=== PATIENT | male | born 1955 | race Caucasian/White ===

== ENCOUNTER → 2018-08-14 13:39 | Outpatient (CLI) | payer SELFPAY ==
[2013-10-23 13:27] VITALS: BMI 31.5
--- NOTE | 2018-08-14 13:50 | CT_ITS ---
STUDY: CT CHEST WITHOUT CONTRAST REASON FOR EXAM: Male, 62 years old. Elevated cholesterol levels. Calcium scoring examination. Radiological ovary. RADIATION DOSAGE (If Supplied By Facility): CTDIvol = ( 12.19 ) mGy, DLP = ( 219.42 ) mGycm TECHNIQUE: Transaxial imaging was performed without the administration of intravenous contrast material. Individualized dose optimization techniques were used for this CT. COMPARISON: None. FINDINGS: Small bilateral axillary lymph nodes. The lungs are normal. There is no demonstrated pleural abnormality. There are calcifications of the coronary arteries. There are multiple small lymph nodes within the mediastinum, which are normal in size and morphology most compatible with reactive lymph hyperplasia. Normal hilar regions. Normal unenhanced pulmonary arteries. There is atherosclerotic calcification of the aortic arch aortic arch . There are multi-level degenerative changes of the thoracic spine. Moderate sized hiatal hernia. CT/Limited Chest CT w/CCTA IMPRESSION: No acute abnormality is seen. Electronically Signed: Lucien Milton MD at 8:50 EST , Service support ,
[2018-08-14 13:53] VITALS: BP 132/85; PULSE 75; RESP 16; O2SAT 99; BMI 31.6
--- NOTE | 2018-08-15 15:20 | CA.SCORE ---
Calcium Scoring Date of Study:: 08/14/18 Coronary Calcium Scoring: Total Agatston coronary score of 6.76. Left main: 0 Left anterior descendin.76 Left circumflex: 0 Right coronary artery: 0 Conclusion: Conclusion: The total calcium score (6.76) is below the 25th percentile for men between the ages of 60 and 64. (Exact percentile calculated to be 5%; this means 4% of the population has a lower calcium score and 95% of the population is a higher calcium score than this patient). Results: Results: Coronary calcium score between 1?10 demonstrates minimal plaque burden and significant coronary artery disease is very unlikely. Impression: Impression: Coronary calcium scoring is intended to be a risk assessment test for coronary artery disease only, and the results of this examination should be taken into careful consideration by the patient's own physician in the context of other factors such as relevant history, physical examination, and any other indicated investigations. A full evaluation of cardiac risk should include an assessment of all conventional risk factors, and the scores and percentile ranking is reported herein should be evaluated in this context. Recommend clinical correlation or alternative mode of testing if coronary occlusive disease is strongly suspected.
== END ==
PROVIDERS: Family Provider Internal Medicine; PCP Internal Medicine; Referring Provider Internal Medicine; Visit Provider Internal Medicine
DX: E78.5 Hyperlipidemia, unspecified (principal)
CPT/HCPCS: 75571; 76380

== ENCOUNTER 2019-06-14 19:23 | Emergency (ER) | payer OTHER, SELFPAY ==
[2018-08-14 13:53] VITALS: BMI 31.6
[2019-06-14 19:24] VITALS: BP 140/73; PULSE 90; RESP 15; TEMP 36.1; O2SAT 98; BMI 32.6
--- NOTE | 2019-06-14 19:45 | RAD_ITS ---
HISTORY:FALL, SUPERIOR PAIN FALL, SUPERIOR PAIN COMPARISON: None FINDINGS: # of images incl. paperwork: 4 XR Shoulder Min 2 Views: Left BONE AND JOINTS: No acute fracture. The acromioclavicular joint is at the upper limits of normal. Question acromioclavicular separation. The coracoclavicular joint is maintained SOFT TISSUES: Unremarkable. No radiopaque foreign body. RAD/Shoulder min 2 Views IMPRESSION: Question grade 1-2 acromioclavicular separation. Correlate clinically for pain at 2038 Reported and signed by: Kaci Kelley DO Electronically Signed: Kaci Kelley DO at 20:37 EST Tel , Service support ,
--- NOTE | 2019-06-14 19:50 | RAD_ITS ---
HISTORY:FALL, PAIN 4-5 DISTAL MC FALL, PAIN 4-5 DISTAL MC COMPARISON: None FINDINGS: # of images incl. paperwork: 3 XR Hand Min 3 Views: Right BONE AND JOINTS: No acute fracture or subluxation. There is degenerative change at the first carpometacarpal joint SOFT TISSUES: Unremarkable. No radiopaque foreign body. RAD/Hand Min 3 Views IMPRESSION: No acute pathology If symptoms persist repeat study in 7-10 days or sooner if clinically indicated at 2037 Reported and signed by: Kaci Kelley DO Electronically Signed: Kaci Kelley DO at 20:36 EST Tel , Service support ,
--- NOTE | 2019-06-14 20:52 | ED.VISSUMM ---
- ER Visit Summary Date of Service: 06/14/19 Chief Complaint: Left shoulder injury History of Present Illness: The patient is a 63 M who was standing on a barstool trying to hang a picture when he fell landing directly onto the left shoulder. He is right-handed. He thinks he saw a deformity when he left the house. He denies any paresthesias or muscle weakness of the arm. He denies striking his head or having any neck pain. No abdominal or back pain. He notes his fourth and fifth finger on the right hand are painful to move but denies any loss of function. Physical Examination: Afebrile vital signs are stable Gen: Well-nourished well-developed Head: Normocephalic atraumatic Eyes: Perrl EOMI ENT: TMs clear no rhinorrhea moist mucous membranes Neck: Supple no lymphadenopathy no JVD nontender CVS: Regular rate rhythm no murmurs normal S1-S2 Respiratory: No distress clear to auscultation bilaterally chest nontender Abdomen: Soft nontender nondistended normal bowel sounds no masses Back: Nontender Extremity: Right hand shows full range of motion albeit painful per him of the fourth and fifth finger. The left shoulder shows tenderness over the AC joint. No obvious deformity. Neurovascularly intact. Limited range of motion due to pain Skin: Normal color no rash Neuro: alert orientated ?3 CN II-XII intact normal strength sensation Psych: Normal affect normal mood Test Results: Hand films were negative for fracture. Shoulder films show a probable grade 1/grade 2 AC separation. Emergency Department Course and Treatment: Patient drove himself to the hospital and is allergic to all anti-inflammatories. I will write for him to have a sling and for [place]. Patient to follow-up with orthopedics. Impression: 1. Left AC separation This note was generated with [employer] dictation software. It may contain incorrect words, spelling, and punctuation that were not noted in review of the chart prior to signing ED Disposition - Plan for ED Patient: Disposition: Home or Assisted Living Instructions: Ac Joint Sprain Prescriptions: Hydrocodone Bitart/Apap 5-325 [[place] 5MG-325MG] 1 tab PO Q6H PRN PRN 3 Days #12 tab PRN Reason: Pain Prescription Printed Referrals: Tony Harvey MD [STAFF PHYSICIAN] - As soon as possible
[2019-06-14 21:13] VITALS: BP 130/88; PULSE 83; RESP 16; O2SAT 95
== END 2019-06-14 21:31 | disposition home or self-care (01) ==
PROVIDERS: Emergency Provider Emergency Medicine; Family Provider Internal Medicine; PCP Internal Medicine
DX: S43.102A Unspecified dislocation of left acromioclavicular joint, initial encounter (principal); M79.641 Pain in right hand; W17.89XA Other fall from one level to another, initial encounter; Y93.9 Activity, unspecified; Y92.9 Unspecified place or not applicable; I10 Essential (primary) hypertension; E78.00 Pure hypercholesterolemia, unspecified; F32.9 Major depressive disorder, single episode, unspecified; Z79.899 Other long term (current) drug therapy
CPT/HCPCS: 73030; 73130; 99283

== ENCOUNTER → 2020-01-08 11:22 | Outpatient (CLI) | payer OTHER, SELFPAY ==
--- NOTE | 2020-01-08 11:30 | US_ITS ---
STUDY: RENAL ULTRASOUND - COMPLETE REASON FOR EXAM: Male, 64 years old. ELEVATED SERUM CREATININE TECHNIQUE: Ultrasound evaluation of the kidneys was performed with real-time and static palacios-scale imaging. COMPARISON: None. FINDINGS: RIGHT KIDNEY: Normal location of the right kidney, which is normal in size. The right kidney measures 10.0 x 6.1 x 5.5 cm. There is a normal cortex of the right kidney. The renal cortex measures 1.0 cm. There is no right renal mass or cyst. There are no right renal calculi. There is no right hydronephrosis. DISTAL RIGHT URETER: There is non-visualization of the distal right ureter. There is no demonstrated right ureterovesical junction calculus. There is a visualized right ureteral jet. LEFT KIDNEY: Normal location of the left kidney, which is normal in size. The left kidney measures 9.9 x 5.0 x 5.8 cm. There is a normal cortex of the left kidney. The renal cortex measures 1.2 cm. There is no left renal mass or cyst. There are no left renal calculi. There is no left hydronephrosis. DISTAL LEFT URETER: There is non-visualization of the distal left ureter. There is no demonstrated left ureterovesical junction calculus. There is a visualized left ureteral jet. AORTA: There is no elongation or tortuosity of the abdominal aorta. I.V.C.: The IVC is patent. BLADDER: The bladder is sonographically normal US/Kidney and Bladder IMPRESSION: No suspicious sonographic findings Electronically Signed: Riccardo Ivory MD at 13:17 EDT , Service support ,
--- NOTE | 2020-01-08 11:58 | RAD_ITS ---
STUDY: X-RAY - LEFT HAND, ATTENTION FIRST FINGER REASON FOR EXAM: Male, 64 years old. BILATERAL THUMB PAIN TECHNIQUE: view(s) of the finger were obtained. COMPARISON: None. FINDINGS: Normal metacarpal head. Normal metacarpophalangeal joint. Normal proximal phalanx. Normal middle phalanx. Normal distal phalanx. Normal proximal interphalangeal joint. Normal distal interphalangeal joint. RAD/Finger(s) Min 2 Views IMPRESSION: Normal x-ray examination of the finger. Electronically Signed: Riccardo Ivory MD at 13:22 EDT , Service support ,
--- NOTE | 2020-01-08 12:04 | RAD_ITS ---
STUDY: X-RAY - RIGHT HAND, ATTENTION FIRST FINGER REASON FOR EXAM: Male, 64 years old. BILATERAL THUMB PAIN TECHNIQUE: view(s) of the finger were obtained. COMPARISON: None. FINDINGS: Normal metacarpal head. Normal metacarpophalangeal joint. Normal proximal phalanx. Normal middle phalanx. Normal distal phalanx. Normal interphalangeal joint. Degenerative arthrosis at the base of the thumb. RAD/Finger(s) Min 2 Views IMPRESSION: No demonstrated fracture or suspicious osseous lesion First CMC joint arthrosis Electronically Signed: Riccardo Ivory MD at 13:19 EDT , Service support ,
== END ==
PROVIDERS: PCP Internal Medicine; Referring Provider Internal Medicine; Visit Provider Internal Medicine
DX: M79.645 Pain in left finger(s) (principal); M79.644 Pain in right finger(s); R79.89 Other specified abnormal findings of blood chemistry
CPT/HCPCS: 73140; 76770

== ENCOUNTER → 2020-02-25 07:59 | Outpatient (CLI) | payer OTHER, SELFPAY ==
--- NOTE | 2020-02-25 08:06 | RDU_ITS ---
Reason For Study: Acute Renal Failure Right Renal Artery Left Renal Artery Right renal artery ostium 124/21 Left renal artery ostium 82/15 RSV/EDV. PSV/EDV. Right renal artery proximal 116/23 Left renal artery proximal PSV/EDV PSV/EDV. 110/26 . Right renal artery mid 145/26 Left renal artery mid 82/20 PSV/EDV. PSV/EDV . Right renal artery distal 132/31 Left renal artery distal 88/27 PSV/EDV. PSV/EDV. Right Renal Parenchyma Left Renal Parenchyma Upper Pole Medula 20/7 PSV/EDV. Left upper pole medulla 31/13 Right upper pole medulla EDR 0.35 . PSV/EDV . Right upper pole medulla R.I. Left upper pole medulla EDR 0.42 . 0.65 . Left upper pole medulla R.I. 0.59 . Upper Jose Cortx 21/8 PSV/EDV. UP Cortex 25/9 PSV/EDV. Right upper pole cortex EDR 0.38 . Left upper pole cortex EDR 0.36 . Right upper pole cortex R.I. 0.62 . Left upper pole cortex R.I. 0.63 . Right lower Pole medulla 23/8 Left lower Pole medulla 26/11 PSV/EDV . PSV/EDV . Right lower pole medulla EDR 0.35 . Left lower pole medulla EDR 0.42 . Right lower pole medulla R.I. Left lower pole medulla R.I. 0.59 . 0.67 . Lower Pole Cortx 19/7 PSV/EDV. Lower Pole Cortex 17/6 PSV/EDV. Left lower pole cortex EDR 0.37 . Right lower pole cortex EDR 0.35 . Left lower pole cortex R.I. 0.62 . Right lower pole cortex R.I. 0.64 . Left Renal Hilar Right Renal Hilar LT Hilar avg 50/15 PSV/EDV . Right Hilar avg 77/28 PSV/EDV. Left hilar acceleration time 30 Right hilar acceleration time 20 m/sec. m/sec. Left Renal Dimensions Right Renal Dimensions Left kidney size 9.58 cm . Right kidney size 9.64 cm . Left cortical dimension 1.26 cm . Right cortical dimension 1.22 cm . Aorta Proximal abdominal aorta 2.21 cm x 2.23 cm . Proximal abdominal aorta peak systolic velocity is 147 cm/sec . Distal abdominal aorta 1.74 cm x 1.91 cm . Distal abdominal aorta peak systolic velocity is 157 cm/sec . Interpretation Summary <60% stenosis bilateral renal arteries Normal renal resistivity indices bilaterally Normal right renal length 9.64cm and left renal length 9.58cm Aorta 2.21 x 2.23 cm diameter with increased velocity at 147cm/sec which is higher than normal at less than 100cm/sec Ordering Physician: Yamile Whalen Referring Physician: Yamile Whalen Performed By: Tricia Patricia, ANA LAURA, RVT
== END ==
PROVIDERS: PCP Internal Medicine; Referring Provider Internal Medicine; Visit Provider Internal Medicine
DX: I10 Essential (primary) hypertension (principal); N17.9 Acute kidney failure, unspecified; R79.89 Other specified abnormal findings of blood chemistry
CPT/HCPCS: 93975

== ENCOUNTER → 2022-04-21 | Outpatient (CLI) | payer OTHER, SELFPAY ==
[2022-04-21 12:54] LABS: Potassium 5.1 mmol/L (3.5-5.1)
== END | disposition home or self-care (01) ==
LOC: LABSPEC 12:19
PROVIDERS: PCP Internal Medicine; Referring Provider Internal Medicine; Visit Provider Internal Medicine
DX: E87.5 Hyperkalemia (principal)
CPT/HCPCS: 84132

== ENCOUNTER → 2022-10-23 | Outpatient (CLI) | payer MEDICARE, SELFPAY ==
--- NOTE | 2022-10-23 10:42 | STRESSREP ---
Stress Test Report Date: 10/23/2022 Procedure: Exercise tolerance test/imaging study Indications: Chest pain Consent: Per the patient Procedure: The patient exercised on a Jimmy protocol for 9 minutes achieving a peak heart rate of 153 bpm (98% predicted maximal heart rate) with a peak blood pressure 170/72 mmHg and a peak MET capacity of 10.4 METs. The baseline ECG demonstrated normal sinus rhythm. The peak exercise ECG demonstrated no ischemic change. [There were no cardiac dysrhythmias pretest, during exercise, or recovery]. The functional capacity was considered adequate. There was [no complaint of chest discomfort during exercise or recovery]. The examination was discontinued secondary to target heart rate being achieved. The patient was injected with 14.7 mCi of technetium 99m Cardiolite and subsequently rest SPECT Cardiolite nuclear imaging was obtained in the horizontal long, vertical long, and short axis views. Post-exercise, the patient was injected with 44.4 mCi of technetium 99m Cardiolite and subsequently stress SPECT Cardiolite nuclear imaging was obtained in the horizontal long, vertical long, and short axis views. A gated Cardiolite study at peak stress was obtained. Rest and stress SPECT Cardiolite nuclear imaging status post realignment, normalization, and attenuation correction, demonstrates [the appearance of relative uniform tracer uptake and myocardial perfusion appearing within normal limits]. [There is end systolic thickening and brightening]. The gated Cardiolite study demonstrates [myocardial thickening and inward wall motion]. The reported LVEF is 66%. Impression: 1. Technically adequate (percent predicted maximal heart rate greater than 85%) exercise tolerance test 2. Peak exercise ECG with no ischemic changes 3. [There were no cardiac dysrhythmias pretest, during exercise, or recovery] 4. Rest and stress SPECT Cardiolite nuclear imaging demonstrate no fixed or reversible perfusion defects. 5. The gated Cardiolite study reports an LVEF of 66%. This note was generated with [employer] software. It may contain incorrect words, spelling, and punctuation that were not noted in checking the note before signing.
== END | disposition home or self-care (01) ==
PROVIDERS: PCP Internal Medicine; Referring Provider Internal Medicine; Visit Provider Internal Medicine
DX: I25.10 Atherosclerotic heart disease of native coronary artery without angina pectoris (principal); R07.9 Chest pain, unspecified
CPT/HCPCS: 78452; 93017; A9500; A4216

== ENCOUNTER → 2022-11-22 | Outpatient (CLI) | payer SELFPAY ==
--- NOTE | 2022-11-22 12:32 | CT_ITS ---
INDICATION: SCREENING limited chest over-read ONLY EXAMINATION: CT CHEST WITHOUT CONTRAST - CT Chest W/O Contrast Injection TECHNIQUE: Helically acquired images were obtained of the chest. A radiation dose optimization technique was used for this scan. IV Contrast dosage and agent: None. COMPARISON: None. FINDINGS: LUNGS, PLEURA AND LARGE AIRWAYS: Mild increased markings at the lung bases suggests a viral or mild atelectasis and/or scarring. No pleural effusion or thickening. No pneumothorax. THYROID: No thyroid lesions. HEART AND PERICARDIUM: Heart size is normal. No pericardial effusion. CORONARY ARTERIES: Coronary artery calcification is seen. VESSELS: Atherosclerotic calcific plaques of the aortic arch. MEDIASTINUM AND TRAVIS: Small benign-appearing mediastinal lymph nodes. Esophagus is unremarkable. No hiatal hernia. UPPER ABDOMEN: Small hiatal hernia. BONES: Degenerative changes of the visualized thoracic spine. CT/Limited Chest CT Cardiac Only IMPRESSION: Coronary artery calcification. Electronically Signed: Lucien Milton MD at 9:09 EDT ,
--- NOTE | 2022-11-22 17:41 | CA.SCORE ---
Calcium Scoring Date of Study:: 11/22/22 Coronary Calcium Scoring: High-resolution Computed Tomographic imaging of the chest was performed on [11/22/2022], with particular attention paid to the coronary arteries. Images from the examination were analyzed for the presence and extent of coronary artery calcification , using coronary calcium quantification software. The patient tolerated the procedure well and there were no complications. The results of the coronary calcification analysis are provided below. Findings Coronary Artery Left Main (LM): 0 Left Anterior Descending (LAD): 86 Left Circumflex (LCX): 9 Right Coronary Artery (RCA): 0 Total Agatston Score: 95 Percentile Rankinth-50th Calcium Scoring Interpretation: Different methods to categorize the overall amount of coronary plaque. Overall amount CAC SIS Visual of coronary plaque P1 Mild -100 <2 1-2 vessels with mild amount of plaque P2 Moderate 101-300 3-4 1-2 vessels with moderate amount, 3 vessels with mild amount of plaque P3 Severe 301-999 5-7 3 vessels with moderate amount, 1 vessel with severe amount of plaque P4 Extensive >1000 >8 2-3 vessels with severe amount of plaque Calcium Score: Mild: 1-2 vessels w/mild amount of plaque Conclusion: Mild atherosclerotic plaquing noted
== END | disposition home or self-care (01) ==
LOC: CT 12:31
PROVIDERS: PCP Internal Medicine; Referring Provider Internal Medicine; Visit Provider Internal Medicine
DX: I25.10 Atherosclerotic heart disease of native coronary artery without angina pectoris (principal)
CPT/HCPCS: 75571; 76380

== ENCOUNTER 2024-01-22 15:57 | Outpatient (CLI) | payer MEDICARE, SELFPAY ==
--- NOTE | 2024-01-22 | IMM_PTH ---
PATIENT: KILEY SALAZAR LOC: [facility] U#:[id number] AGE/SX: 68/M ROOM: RE01/22/[address]: Dr. Brigido Everett MD : 1955 BED: DIS: 01/22/2024 SPEC #: [id number] RECD: 01/24/24 12:33 STATUS: SHAWNA REQ #: [id number] JERRELL: 01/22/24 00:[address]: Brigido Everett DEPT: IMMUNOHISTOCHEMISTRY RECD BY: Gael Bazan ENTERED: 01/24/24 12:34 SP TYPE: IMMUNO OTHR DR: Dr. Yamile Whalen MD Tissues: D - PROSTATE LEFT E - PROSTATE LEFT F - PROSTATE LEFT Procedures: 34BE12 (add) P40 (add) P40 (initial) 34BE12 (initial) PHYSICIAN & INSTITUTION [place] [id number] SPECIMEN INFORMATION: Tissue Source: D- Prostate left apex, E- Prostate left mid, F- Prostate left base Clinical Info: Elevated PSA Specimen Number: [id number] D, E, F CPT code: 42117v7,67512j0 METHODOLOGY: Deparaffinized sections of prefer/formalin-fixed tissue or PAP/DQ stained slides are incubated with monoclonal/polyclonal antibodies/oligonucleotide probes. Localization is made via biotin free immunoperoxidase method. Appropriate controls are performed and reacted as expected. Results on target cell population are indicated in the following table: RESULTS: ANTIBODY / CLONE RESULT Block D P40 (BC28) negative 34BE12 (34BE12) negative Block E P40 (BC28) positive 34BE12 (34BE12) positive Block F P40 (BC28) positive 34BE12 (34BE12) positive These tests were developed and their performance characteristics determined by [facility]. They may not have been cleared or approved by the U.S. Food and Drug Administration. The FDA has determined that such clearance or approval is not necessary. The above immunohistochemical/dualISH markers are ordered and reviewed by the Pathologist. INTERPRETATION: D. Prostate, left apex, core biopsy: A minute focus of adenocarcinoma. E. Prostate, left mid, core biopsy: Focal high-grade prostatic intraepithelial neoplasia (HGPIN). F. Prostate, left base, core biopsy: Negative for malignancy. JOCELIN/ 01/25/2024
--- NOTE | 2024-01-22 13:00 | PROSBIL_PTH ---
PATIENT: KILEY SALAZAR LOC: [facility] U#:[id number] AGE/SX: 68/M ROOM: RE01/22/[address]: Dr. Brigido Everett MD : 1955 BED: DIS: 01/22/2024 SPEC #: [id number] RECD: 01/22/24 15:00 STATUS: SHAWNA SANTOS #: [id number] JERRELL: 01/22/24 13:[address]: Brigido Everett DEPT: SURGICAL PATHOLOGY RECD BY: Giuliana Garibay ENTERED: 01/23/24 09:32 SP TYPE: PROST BX TAYLOR DR: Dr. Yamile Whalen MD Tissues: A - PROSTATE RIGHT B - PROSTATE RIGHT C - PROSTATE RIGHT D - PROSTATE LEFT E - PROSTATE LEFT F - PROSTATE LEFT Procedures: PROSTATE BX HEADER OPERATION: Prostate biopsy PRE-OP DIAGNOSIS: Elevated PSA TISSUE SUBMITTED: A - Right apex, B - Right mid, C - Right base, D - Left apex, E - Left mid, F - Left base MICROSCOPIC DIAGNOSIS A. Right prostate, apex, core biopsy: Prostatic adenocarcinoma. [place] grade: 3+4=7 Number of cores involved: 1/2 Proportion of tissue involved: ~40% Perineural invasion: Not identified. Greatest tumor length: 0.4cm Focal high-grade prostatic intraepithelial neoplasia (HGPIN). B. Right prostate, mid, core biopsy: Prostatic adenocarcinoma. Martina grade: 4+3=7 Number of cores involved: 2/2 Proportion of tissue involved: >95% Perineural invasion: Present, focal. Greatest tumor length: 0.8 cm Focal high-grade prostatic intraepithelial neoplasia (HGPIN). C. Right prostate, base, core biopsy: Prostatic adenocarcinoma. [place] grade: 4+3=7 Number of cores involved: 2/2 Proportion of tissue involved: >95% Perineural invasion: Present, focal. Greatest tumor length: 0.8 cm Focal high-grade prostatic intraepithelial neoplasia (HGPIN). D. Left prostate, apex, core biopsy: A minute focus of prostatic adenocarcinoma. [place] grade: 3+3= 6 Number of cores involved: 1/1 Proportion of tissue involved: <5% Perineural invasion: not identified. Greatest tumor length: <0.1 cm See comment. E. Left prostate, mid, core biopsy: Focal high-grade prostatic intraepithelial neoplasia (HGPIN). Focal mild acute and chronic inflammation. See comment. F. Left prostate, base, core biopsy: Prostatic tissue, negative for malignancy. See comment. JOCELIN/ 01/24/2024 COMMENT D, E, F. Immunohistochemistry ([id number]) supports the above diagnosis. MICROSCOPIC DESCRIPTION Slides are reviewed. GROSS DESCRIPTION A - Received is one container designated prostate, right apex. The specimen consists of two elongated fragments of light german-white soft tissue measuring 0.4 and 1.0 cm in length and 0.1 cm in diameter. The specimen is totally submitted in one cassette. B - Received is one container designated prostate, right mid. The specimen consists of two elongated fragments of light german-white soft tissue each measuring 1.1 cm in length and 0.1 cm in diameter. The specimen is totally submitted in one cassette. C - Received is one container designated prostate, right base. The specimen consists of two elongated fragments of light german-white soft tissue measuring 1.0 and 1.2 cm in length and 0.1 cm in diameter. The specimen is totally submitted in one cassette. D - Received is one container designated prostate, left apex. The specimen consists of one elongated fragments of light german-white soft tissue measuring 1.2 cm in length and 0.1 cm in diameter. The specimen is totally submitted in one cassette. E - Received is one container designated prostate, left mid. The specimen consists of two elongated fragments of light german-white soft tissue each measuring 1.5 cm in length and 0.1 cm in diameter. The specimen is totally submitted in one cassette. F - Received is one container designated prostate, left base. The specimen consists of two elongated fragments of light german-white soft tissue each measuring 1.2 cm in length and 0.1 cm in diameter. The specimen is totally submitted in one cassette. / JOCELIN/ 01/23/2024 TC:0 CPT: G0146
== END 2024-01-22 23:59 | disposition home or self-care (01) ==
PROVIDERS: PCP Internal Medicine; Referring Provider Urology; Visit Provider Urology
DX: C61 Malignant neoplasm of prostate (principal)
CPT/HCPCS: 88305; 88341; 88342; G0416

== ENCOUNTER → 2024-02-19 | Outpatient (CLI) | payer MEDICARE, SELFPAY ==
--- NOTE | 2024-02-19 10:30 | PET_ITS ---
EXAMINATION: Ga 68 PSMA ? INDICATIONS: 68-year-old male with a history of primary prostate carcinoma, presenting for apparent initial staging examination. ? COMPARISON EXAMINATION: None available. ? INDEX LESION SIZE PROMISE SCORE SUV INTERPRETATION Lower pelvis, prostate gland 32.3 mm 3 29.47 Fulfills quantitative criteria for viable neoplasm ? TECHNIQUE: Following the intravenous administration of 9.4 mCi of Ga 68 PSMA via the right antecubital fossa, multiplanar image acquisitions of the head, neck, chest, abdomen and pelvis to the level of the midthigh, obtained at 73 minutes post tracer distribution reveal: ? The examination was interpreted using the EANM (Jaxson et al., Journal of Nuclear Medicine Molecular Imaging 44:1622, 2017) and PROMISE (Delores et al., Journal of Nuclear Medicine 59:469, 2018) interpretive criteria. ? HEIGHT:?? 68 inches WEIGHT:?? 195 pounds ? PSMA expression score PROMISE criteria: High (3): SUV > parotid-salivary gland, intermediate (2): SUV > liver, low (1): > blood pool, < liver, (0): < blood pool. ? SUV reference values: Parotid glands 15.51. Normal liver parenchyma 7.1. Blood pool 1.8. ? FINDINGS: ? HEAD/NECK:? Symmetric radiopharmaceutical concentration is defined in the bilateral parotid and submandibular glands. Physiologic tracer uptake is noted in the nasal cavity. ? There is no evidence of abnormal increased tracer uptake within the context of the cranial vault. ? CHEST:? There is no quantitative scintigraphic evidence of abnormal increased radiopharmaceutical concentration within the context of the bilateral hemithorax pulmonary parenchyma, right and left hemithorax at the pleural interface, mediastinal structures, and left-right thoracic perihilum. ? CT of the chest demonstrates the following anatomic characteristics: Hiatal hernia is defined. Atherosclerotic calcification is defined in the thoracic aorta without evidence of dilatation, aneurysm formation. Mediastinal and bilateral axillary soft tissue densities are ametabolic. There are no parenchymal densities-nodules defined in the right and left hemithorax with quantitatively significant increased FDG uptake. ? ABDOMEN/PELVIS:? Increased tracer uptake noted in the lower pelvis associated with the base of the prostate gland to the left and right of the midline. The calculated standard uptake value is 29.47. PROMISE Score is 3. The maximal axial diameter of the metabolic, morphologic abnormality is 32.3 mm. Uniform, homogeneous radiopharmaceutical concentration is defined in the hepatic and splenic parenchyma, visualization of the bilateral renal units, urinary bladder, and visualized intestinal tract. ? CT of the abdomen and pelvis is remarkable for the following: Calcification is defined in the left kidney. Atherosclerotic calcification is defined in the abdominal aorta without evidence of dilatation, aneurysm formation. Pelvic arterial calcification is observed. Bilateral inguinal soft tissue densities are ametabolic. ? SKELETAL:? There is no evidence of quantitatively significant enhanced radiopharmaceutical metabolism on meticulous inspection of the appendicular and axial skeletal structures. ? Degenerative changes defined in the thoracic and lumbar spine demonstrate no evidence of increased glucose metabolism. There are no sclerotic, mixed sclerotic-lytic, or primarily lytic changes defined in the axial skeletal structures with evidence of increased FDG uptake. ? PET/PET/CT Tumor Base -Thigh Init IMPRESSION: 1. ABNORMAL EXAMINATION INDICATIVE OF MALIGNANT-VIABLE NEOPLASM. 2. Increased tracer uptake noted in the lower pelvis associated with the base of the prostate gland to the left and right of the midline fulfills quantitative criteria for viable neoplasm. 3. No other quantitatively significant hypermetabolic abnormalities are noted. Accurate Quantification of SUVs and standardized PROMISE scores for this report are calculated using the exclusive [employer], ([place] Patent No. [phone] [place] patent [id number] [phone] ). Standardization and correction of the FDG SUV metric exclusively available with [employer] intellectual property, allow for vendor non-specific objective quantitative sequential FDG PET-CT comparison and otherwise unobtainable optimization of the sensitivity and specificity of the examination. https://depict Electronically Signed: Andrea Norris DO at 23:16 EDT ,
== END | disposition home or self-care (01) ==
LOC: ONC 10:11 → RAO 03-05 11:03
PROVIDERS: PCP Internal Medicine; Referring Provider Urology; Visit Provider Urology
DX: C61 Malignant neoplasm of prostate (principal)
CPT/HCPCS: 78815; A9595

== ENCOUNTER → 2024-03-31 | Outpatient (CLI) | payer MEDICARE, SELFPAY ==
--- NOTE | 2024-03-31 12:37 | MRI_ITS ---
MR Pelvis WO/W Contrast 03/31/2024 1:02 PM COMPARISON: PET/CT 02/19/2024 CLINICAL HISTORY: 68 yo man with prostate cancer. TECHNIQUE: Axial T1-weighted and high-resolution axial T2-weighted MR images of the pelvis were obtained. Images were acquired for planning of radiation therapy. 18 cc of IV Clariscan was administered. DISCUSSION: Lesion 1: LOCATION - approximately 4.9 x 2.9 x 2.1 cm moderately T2 hypointense mass very bright on DWI and moderately dark on ADC map involving the entire right peripheral zone from base to near apex as well as the posterior left peripheral zone and posterior right transitional zone. T2 - 5 DWI - 5 DCE - positive Overall PI-RADS v2 score = 5 Capsular margin and neurovascular bundle: There is macro capsular extension posteriorly and posterolaterally the right by at least 3 mm. Seminal vesicles: Bilateral invasion. Lymph nodes: No lymphadenopathy in the field of view. Bones: No suspicious lesions in the field of view. Bladder: No involvement. MRI/Pelvis W/WO Contrast IMPRESSION: 5 cm PI-RADS 5 lesion in nearly the entire right PZ from base to near apex as well as the posterior left PZ and posterior right TZ. - 3 mm macrocapsular extension posteriorly and posterolaterally to the right - Bilateral seminal vesicle invasion. - Bilateral disease. - No bladder involvement. - No lymphadenopathy. - No suspicious bone lesions. Electronically Signed: Alex Mora MD at 0:15 EDT ,
[2024-03-31 13:12] LABS: EGFR FINGERSTICK > 60.0000 mL/min (>60)
== END | disposition home or self-care (01) ==
LOC: MRI 12:35
PROVIDERS: PCP Internal Medicine; Referring Provider Student in an Organized Health Care Education/Training Program; Visit Provider Student in an Organized Health Care Education/Training Program
DX: Z01.812 Encounter for preprocedural laboratory examination (principal); C61 Malignant neoplasm of prostate
CPT/HCPCS: 72197; A9575

== ENCOUNTER → 2025-06-09 | Outpatient (CLI) | payer MEDICARE, SELFPAY ==
[2025-06-09 16:41] LABS: Hematocrit 30.4 % (40-54); Hemoglobin 9.4 g/dL (13.0-16.5); Immature Granulocytes Count 0.010 X10^3/uL (0.0-0.0); Mean Corp Hgb Conc 30.9 g/dL (32-36); Mean Corpuscular Volume 86.4 fL (80-94); Mean Platelet Vol. 10.0 fl (6.2-12.0); NRBC Flagged by Analyzer 0 % (0-5); POSITIVE DIFFERENTIAL YES; Platelet Count 269 K/mm3 (150-450); RBC Distribution Width CV 12.7 % (11.6-14.6); RBC Distribution Width SD 39.6 fl (35.1-43.9); Red Blood Count 3.52 M/mm3 (4.6-6.2); White Blood Count 4.0 K/mm3 (4.4-11.0)
[2025-06-09 16:59] LABS: Anion Gap 11 (5-15); BUN 31 mg/dL (4-19); BUN/Creat Ratio 16.9 RATIO (10-20); Calcium,Total 9.6 mg/dL (7.6-11.0); Carbon Dioxide 23.8 mmol/L (21.0-32.0); Chloride 104 mmol/L (98-108); Glucose 109 mg/dL (70-99); Potassium 4.4 mmol/L (3.3-5.1)
== END | disposition home or self-care (01) ==
LOC: CIMLAB 15:17
PROVIDERS: PCP Internal Medicine; Referring Provider Internal Medicine; Visit Provider Internal Medicine
DX: K64.8 Other hemorrhoids (principal)
CPT/HCPCS: 36415; 80048; 85025

== ENCOUNTER → 2025-07-06 | Outpatient (CLI) | payer MEDICARE, SELFPAY ==
[2025-07-06 17:55] LABS: Hematocrit 29.8 % (40-54); Hemoglobin 9.5 g/dL (13.0-16.5); Immature Granulocytes Count 0.020 X10^3/uL (0.0-0.0); Mean Corp Hgb Conc 31.9 g/dL (32-36); Mean Corpuscular Volume 84.9 fL (80-94); Mean Platelet Vol. 9.7 fl (6.2-12.0); NRBC Flagged by Analyzer 0 % (0-5); Platelet Count 248 K/mm3 (150-450); RBC Distribution Width CV 14.3 % (11.6-14.6); RBC Distribution Width SD 44.3 fl (35.1-43.9); Red Blood Count 3.51 M/mm3 (4.6-6.2); White Blood Count 5.3 K/mm3 (4.4-11.0)
== END | disposition home or self-care (01) ==
LOC: CIMLAB 16:11
PROVIDERS: PCP Internal Medicine; Referring Provider Internal Medicine; Visit Provider Internal Medicine
DX: D64.9 Anemia, unspecified (principal)
CPT/HCPCS: 36415; 85025